=== PATIENT | female | born 1955 | race American Indian/Alaskan Native ===

== ENCOUNTER 2018-02-13 09:39 | Outpatient (CLI) | payer BC ==
--- NOTE | 2018-02-13 10:30 | Mammography Report ---
Screening mammogram: Routine views are compared to prior exams dating back to 2011. The patient has a heterogeneously dense fiber glandular pattern which is diffusely and symmetrically distributed. In the left CC projection laterally there is a circumscribed nodule only identified in the CC projection and not present on prior exams. Slightly more anteriorly there is another area of asymmetry that may not be present previously. Remainder of the breast pattern is unchanged and unremarkable bilaterally. CAD used. Impression: Left asymmetries. Recommendation: Additional compression imaging of the left breast. Ultrasound, if needed. BI-RADS CATEGORY: 0 = Needs additional imaging evaluation ACR BI-RADS MAMMOGRAPHIC CODES: 0 = Needs additional imaging evaluation; 1 = Negative; 2 = Benign; 3 = Probably benign; 4 = Suspicious; 5 = Malignant; 6 = Known biopsy-proven malignancy COMMENT: 1. Dense breast tissue, i.e., adenosis, fibrocystic changes, etc., may obscure an underlying neoplasm. 2. Approximately 10% of cancers are not detected with mammography. 3. A negative mammography report should not delay biopsy if a clinically suspicious mass is present.
== END 2018-02-13 09:40 | disposition home or self-care (01) ==
LOC: SPVWC 09:39
PROVIDERS: ATTEND Family Medicine
DX: Z12.31 Encounter for screening mammogram for malignant neoplasm of breast (principal)
CPT/HCPCS: 77067

== ENCOUNTER 2018-02-23 10:47 | Outpatient (CLI) | payer BC ==
--- NOTE | 2018-02-23 11:50 | Mammography Report ---
LEFT DIGITAL DIAGNOSTIC MAMMOGRAM : 02/23/18 10:47:00 CLINICAL: Recalled for asymmetry. COMPARISON:02/13/18 screening FINDINGS: Additional mammographic views were obtained and are negative. IMPRESSION: No mammographic evidence of malignancy. BI-RADS CATEGORY: 1 -- Negative RECOMMENDATION: Routine mammographic screening in one year. ACR BI-RADS MAMMOGRAPHIC CODES: 0 = Needs additional imaging evaluation; 1 = Negative; 2 = Benign; 3 = Probably benign; 4 = Suspicious; 5 = Malignant; 6 = Known biopsy-proven malignancy COMMENT: 1. Dense breast tissue, i.e., adenosis, fibrocystic changes, etc., may obscure an underlying neoplasm. 2. Approximately 10% of cancers are not detected with mammography. 3. A negative mammography report should not delay biopsy if a clinically suspicious mass is present. COMMENT: Patient follow-up letters are generated via our [employer] application.
== END 2018-02-23 10:48 | disposition home or self-care (01) ==
LOC: SPVWC 10:47
PROVIDERS: ATTEND Family Medicine
DX: R92.8 Other abnormal and inconclusive findings on diagnostic imaging of breast (principal)